=== PATIENT | female | born 1995 | race Caucasian/White ===

== ENCOUNTER 2024-06-21 01:36 | Inpatient (IN) ==
[2024-06-21] MEDS ORDERED: LIDOCAINE 1% LOCAL 20 ML VIAL INFIL PRN (04:02)
--- NOTE | 2024-06-21 04:06 | History & Physical Report ---
Date of Service June 21, 2024 Assessment & Plan (1) Encounter for supervision of normal in multigravida: Plan: Admit to L&D for labor. EFM/toco. labs. Would like epidural. History of Present Illness Chief Complaint: labor Primary Care Provider: Viri Hahn MD 28yo @ 40 0/7, came to L&D with contractions. No leaking, no bleeding. +FM Allergies Allergy/AdvReac Type Severity Reaction Status Date / Time neosporin Allergy Intermediate Rash Uncoded 06/14/24 11:49 Home Medications Medication Instructions Recorded Confirmed Type 21-iron fu-folic acid 1 tab PO DAILY 11/06/23 06/21/24 History [ Complete] sertraline 50 mg PO DAILY 11/06/23 06/21/24 History Patient History Medical History Depression History of chicken pox Hx of migraines Surgical History S/P ear surgery S/P wisdom tooth extraction Family History Sister Endometriosis Grandmother (Paternal) Endometriosis Denies family history of Ovarian cancer Breast cancer Colorectal cancer Social History Smoking Status: Never smoker Do You Dip or Chew Tobacco: No; Hx Alcohol Use: No Hx Substance Use: No Preferred Language: Tajik Communication Ability: Effective 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 Beliefs That Will Affect Care: None marital status: marital status details: Farhad Lozoya (31) [phone] Current Living Situation: Spouse and Family Current Living Situation Comment: lives with spouse, child, dog current occupational status: employed 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 No s/s chorio or abruption. Skin: no rashes, warm and dry Psychiatric: A+Ox3, euthymic affect Results & Data Vital Signs (Past 12 Hours) Vital Signs Temp Pulse Resp BP 06/21/24 01:58 36.9 C 18 06/21/24 01:53 107 H 110/71 Coding Level of Care Code None Diagnoses Encounter for supervision of normal in multigravida Z34.80
[2024-06-21] MEDS: LACTATED RINGER'S 1,000 ML IV PRN (04:15)
[2024-06-21 04:55] LABS: Hematocrit (blood only) 34.4 % (37.0-47.0); Hemoglobin 11.7 g/dl (12.0-16.0); Mean Corpuscular Volume 91.2 fL (80.0-100.0); Mean Platelet Volume 8.6 fL (9.4-12.4); Platelet Count 190 K/uL (130-400); RDW Coefficient of Variation 14.2 % (11.5-14.5); RDW Standard Deviation 47.4 fL (36.4-46.3); Red Blood Count 3.77 M/uL (4.20-5.40); White Blood Count 10.77 K/ul (4.8-10.8)
[2024-06-21] MEDS ORDERED: SODIUM CHLORIDE 0.9% PF INJ 10 ML VIAL EPI PRN (05:02)
[2024-06-21] MEDS ORDERED: ONDANSETRON INJ 2 MG/ML 2 ML VIAL IV PRN (05:02)
[2024-06-21] MEDS ORDERED: ROPIVACAINE 0.5% PF 5 MG/ML 20 ML VIAL EPI PRN (05:02)
[2024-06-21] MEDS ORDERED: fentaNYL citrate PF 100 MCG/2 ML VIAL EPI PRN (05:02)
[2024-06-21] MEDS ORDERED: LIDOCAINE 2% MPF LOCAL 5 ML VIAL EPI PRN (05:02)
[2024-06-21] MEDS ORDERED: BUPIVACAINE 0.25% PF 30 ML VIAL EPI PRN (05:02)
[2024-06-21] MEDS ORDERED: NALOXONE HCL 0.4 MG/1 ML VIAL/CARP IV PRN (05:02)
[2024-06-21] MEDS ORDERED: NALOXONE HCL 1 MG in SODIUM CHLORIDE 0.9% 1,000 ML IV PRN (05:02)
[2024-06-21] MEDS ORDERED: diphenhydrAMINE 50 MG/ML VIAL IV PRN (05:02)
[2024-06-21] MEDS ORDERED: NALBUPHINE HCL INJ 10 MG/ML AMP IV PRN (05:02)
--- NOTE | 2024-06-21 05:07 | Anesthesiology Consultation ---
Date of Service June 21, 2024 Assessment & Plan (1) Encounter for pre-operative examination: Chart Review Chart Review: Patient NOT seen in Pre Admission Testing and Acceptable Risk for Labor Epidural Consults Requested none History Height/Weight Height: 5 ft 8 in Weight: 100.607 kg Allergies Allergy/AdvReac Type Severity Reaction Status Date / Time bacitracin Allergy Intermediate Rash Verified 06/21/24 04:11 [From Neosporin ([id number])] neomycin Allergy Intermediate Rash Verified 06/21/24 04:11 [From Neosporin ([id number])] polymyxin B Allergy Intermediate Rash Verified 06/21/24 04:11 [From Neosporin ([id number])] Medications Home Medications Medication Instructions Recorded Confirmed Last Taken 21-iron fu-folic acid 1 tab PO DAILY 11/06/23 06/21/24 06/20/24 09:00 [ Complete] sertraline 50 mg PO DAILY 11/06/23 06/21/24 06/20/24 07:30 Active Medications Generic Name Dose Route Start Last Admin Trade Name Freq PRN Reason Stop Dose Admin Lactated Ringer's 1,000 mls @ 125 mls/hr 06/21/24 04:02 06/21/24 04:15 Lr IV 06/22/24 04:01 999 mls/hr .Q8H PRN Administration L&D Protocol Protocol Past Medical History Medical History (Updated 06/21/24 @ 05:06 by Chase Ralph MD) Encounter for pre-operative examination Depression History of chicken pox Hx of migraines Exercise / Class Metabolic Activity II 4-5 Yardwork/Stairs/Walk up hill Past Family History Family History Sister Endometriosis Grandmother (Paternal) Endometriosis Denies family history of Ovarian cancer Breast cancer Colorectal cancer Past Surgical History Surgical History S/P ear surgery ruptured ear drum S/P wisdom tooth extraction Social History Smoking Status: Never smoker Do You Dip or Chew Tobacco: No Hx Alcohol Use: No Alcohol Intake Frequency Comment: Not during . Hx Substance Use: No Physical Exam Vital Signs Last Vital Signs Temp 36.9 C 06/21/24 01:58 Pulse 92 H 06/21/24 05:26 Resp 18 06/21/24 01:58 BP 103/56 L 06/21/24 05:26 Pulse Ox 97 06/21/24 05:23 Testing Laboratory Results 06/21/24 04:16
[2024-06-21] MEDS: LIDOCAINE 2%/EPINEPHRINE 1:200,000 20 ML PF EPI STA (05:35)
[2024-06-21] MEDS: BUPIVACAINE 0.25% PF 30 ML VIAL EPI STA (05:36)
[2024-06-21] MEDS: fentANYL 2 MCG/ML BUPIVacaine 0.125%-NSS 100ML BAG EPI PRN (05:36)
[2024-06-21] MEDS: fentaNYL citrate PF 100 MCG/2 ML VIAL EPI STA (05:36)
[2024-06-21] MEDS: BUPIVACAINE 0.25% PF 30 ML VIAL ONE (05:39)
[2024-06-21] MEDS: SODIUM CHLORIDE 0.9% PF INJ 10 ML VIAL ONE (05:40)
[2024-06-21] MEDS: LIDOCAINE 2%/EPINEPHRINE 1:200,000 20 ML PF ONE (05:40)
[2024-06-21] MEDS: SODIUM CHLORIDE 0.9% PF INJ 10 ML VIAL EPI STA (05:40)
[2024-06-21] MEDS: ePHEDrine sulfate 50 MG/ML AMP ONE (05:40)
[2024-06-21] MEDS: fentANYL 2 MCG/ML BUPIVacaine 0.125%-NSS 100ML BAG ONE (05:40)
[2024-06-21] MEDS: fentaNYL citrate PF 100 MCG/2 ML VIAL ONE (05:40)
[2024-06-21] MEDS: ePHEDrine sulfate 50 MG/ML AMP IV PRN (08:00)
--- NOTE | 2024-06-21 09:26 | Labor Progress Brief Note ---
Date of Service June 21, 2024 Subjective Comfortable w/ epidural Assessment & Plan (1) Encounter for supervision of normal in multigravida: Plan: 28 yo at 40 wga presents in labor VSS Fetus cat 1 Labor - s/p arom for mec, cervix 9 after rom. GBS neg epidural in place Admission and Anticipated Discharge Date Admission Date: June 21, 2024 Physical Exam Genitourinary: Manual OB Exam: + cervical dilation 9 cm, + cervical effacement 90%, + station 0 and + amniotic fluid (arom mec) OB Exam Monitor Tracing: + external FHT monitor used, + external uterine monitor used (q5) and + category I (140/mod/-accel/-decel) Results & Data Vital Signs (Past 12 Hours) Vital Signs Temp Pulse Resp BP Pulse Ox Pulse Ox O2 Del Method 06/21/24 09:18 97 H 106/63 97 06/21/24 09:13 107 H 97 06/21/24 09:12 100 H 93 06/21/24 09:08 112 H 98 06/21/24 09:03 98 H 101/59 L 97 06/21/24 08:58 91 H 95 06/21/24 08:53 87 97 06/21/24 08:49 100 H 107/57 L 06/21/24 08:48 101 H 97 06/21/24 08:43 101 H 96 06/21/24 08:38 99 H 96 06/21/24 08:33 91 H 97 06/21/24 08:31 93 H 100/62 06/21/24 08:29 92 H 99/55 L 06/21/24 08:28 93 H 97 06/21/24 08:27 88 100/57 L 06/21/24 08:25 92 H 98/54 L 06/21/24 08:23 84 99/52 L 97 06/21/24 08:21 97 H 109/62 06/21/24 08:19 97 H 105/62 06/21/24 08:18 80 97 06/21/24 08:17 77 100/57 L 06/21/24 08:15 84 99/57 L 06/21/24 08:13 88 89/51 L 97 06/21/24 08:11 88 92/54 L 06/21/24 08:09 83 93/54 L 06/21/24 08:08 94 H 98 06/21/24 08:07 86 85/51 L 06/21/24 08:05 86 90/51 L 06/21/24 08:03 82 91/51 L 97 06/21/24 08:01 88 87/52 L 06/21/24 07:59 79 83/49 L 06/21/24 07:58 85 83/46 L 96 06/21/24 07:56 76 93 06/21/24 07:53 86 97 06/21/24 07:48 121 H 98 06/21/24 07:43 98 06/21/24 07:43 94 H 06/21/24 07:43 95 H 103/69 06/21/24 07:38 105 H 97 06/21/24 07:33 106 H 96 06/21/24 07:28 97 06/21/24 07:28 99 H 06/21/24 07:28 110 H 103/62 06/21/24 07:23 98 H 97 06/21/24 07:18 103 H 97 06/21/24 07:13 98 06/21/24 07:13 109 H 06/21/24 07:13 97.9 F 108 H 16 111/63 06/21/24 07:08 106 H 98 06/21/24 07:03 105 H 99 06/21/24 06:58 90 103/58 L 97 06/21/24 06:53 85 96 06/21/24 06:48 91 H 97 06/21/24 06:43 104 H 96/57 L 97 06/21/24 06:38 95 H 96 06/21/24 06:33 92 H 96 06/21/24 06:28 98 06/21/24 06:28 99 H 06/21/24 06:28 97 H 106/63 06/21/24 06:23 101 H 97 06/21/24 06:18 96 H 98 06/21/24 06:13 97 H 97 06/21/24 06:12 111 H 104/60 06/21/24 06:10 90 101/59 L 06/21/24 06:08 89 103/62 96 06/21/24 06:06 93 H 108/65 06/21/24 06:04 92 H 109/63 06/21/24 06:03 94 H 96 06/21/24 06:02 93 H 104/63 06/21/24 06:00 96 H 103/63 06/21/24 05:58 96 06/21/24 05:58 93 H 06/21/24 05:58 90 104/64 06/21/24 05:56 86 109/67 06/21/24 05:54 97 H 113/68 06/21/24 05:53 96 H 96 06/21/24 05:52 89 125/76 06/21/24 05:50 96 H 117/68 06/21/24 05:48 96 06/21/24 05:48 94 H 06/21/24 05:48 102 H 134/86 06/21/24 05:47 93 H 94 06/21/24 05:46 112 H 126/92 06/21/24 05:44 107 H 114/65 06/21/24 05:43 106 H 97 06/21/24 05:42 92 H 101/54 L 06/21/24 05:40 91 H 97/54 L 06/21/24 05:38 105 H 94/55 L 96 06/21/24 05:36 96 H 99/57 L 06/21/24 05:34 93 H 95/56 L 06/21/24 05:33 97 H 96 06/21/24 05:32 95 H 97/57 L 06/21/24 05:30 99 H 101/57 L 06/21/24 05:28 97 06/21/24 05:28 101 H 06/21/24 05:28 93 H 106/61 06/21/24 05:26 92 H 103/56 L 06/21/24 05:24 99 H 113/77 06/21/24 05:23 94 H 97 06/21/24 05:18 100 H 98 06/21/24 05:13 99 H 99 06/21/24 05:08 102 H 97 06/21/24 05:03 98 H 99 06/21/24 05:02 97 Room Air 06/21/24 04:54 92 H 99 06/21/24 04:49 108 H 100 06/21/24 04:44 95 H 99 06/21/24 04:39 97 H 96 06/21/24 04:34 110 H 99 06/21/24 04:29 106 H 99 06/21/24 04:24 96 H 97 06/21/24 01:58 98.4 F 18 06/21/24 01:53 107 H 110/71 Coding Level of Care Code None Diagnoses Encounter for supervision of normal in multigravida Z34.80
[2024-06-21] MEDS: OXYTOCIN 30 UNITS/NSS 30 UNITS/500 ML BAG IV PRN (10:28)
--- NOTE | 2024-06-21 10:44 | Delivery Summary ---
Vaginal Delivery Summary Date of Service June 21, 2024 Vaginal Delivery Summary [facility] PREOPERATIVE DIAGNOSIS: 1. Single intrauterine at 40 wga 2. Labor POSTOPERATIVE DIAGNOSIS: 1. Single intrauterine at 40 wga 2. Labor 3. Delivered PROCEDURE: 1. Normal spontaneous vaginal delivery. SURGEON: Jordyn Julien MD ANESTHESIA: Epidural. QUANTITATIVE BLOOD LOSS: 52 mL FLUIDS: Continuous LR. URINE OUTPUT: 450 ml by straight cath after delivery COMPLICATIONS: None. CONDITION: Stable. INDICATIONS: 28 yo at 40 wga presented in labor. She received an epidural for pain control. She underwent arom for meconium stained fluid and progressed to complete and desired to push. FINDINGS: A viable male infant, weight pending with Apgars of 8 and 9 at 1 and 5 minutes respectively. SPECIMEN: Cord blood OPERATIVE REPORT: The patient progressed to 10 cm, 100% effaced and +2 station, pushed over intact perineum with anesthesia to deliver a viable male , weight and Apgars as above. Head of delivered in [place] position. Loose nuchal cord was reduced. Body and shoulders were delivered without difficulty. was delivered to maternal abdomen and nursing staff. Delayed cord clamping was performed for 60 seconds. Cord was clamped and cut. Cord blood was obtained. Placenta delivered spontaneously intact with 3-vessel cord, true knot noted. IV oxytocin and fundal massage were given for excellent hemostasis. Vagina, cervix, perineum, and placenta were inspected. A periclitoral laceration was repaired with 4-0 vicryl in interrupted stitches. There was excellent hemostasis. Sponge and needle counts correct x2. No sponges were left behind. Mother and stable in immediate period. [facility] Vaginal Delivery Charge Vaginal Delivery Codes: 23409 global code for the antepartum, delivery, and post- Delivery Type Details: [facility]
[2024-06-21] MEDS ORDERED: OXYTOCIN 30 UNITS/NSS 30 UNITS/500 ML BAG IV PRN (11:05)
[2024-06-21] MEDS ORDERED: HYDROCORTISONE ACETATE 25 MG SUPP PR PRN (11:05)
[2024-06-21] MEDS ORDERED: bisacodyL 10 MG SUPP PR PRN (11:05)
[2024-06-21] MEDS ORDERED: ACETAMINOPHEN 325 MG TAB PO PRN (11:05)
--- NOTE | 2024-06-21 11:26 | Anesthesia Procedure Note ---
Date of Service June 21, 2024 Anesthesia Post Epidural Note Vital Signs Vital Signs: Temp Pulse Resp BP Pulse Ox O2 Del Method 97.9 F 89 16 102/58 L 98 Room Air 06/21/24 07:13 06/21/24 11:23 06/21/24 07:13 06/21/24 11:15 06/21/24 11:23 06/21/24 05:02 Notes Mental Status: alert / awake / arousable and participated in evaluation Nausea / Vomiting: adequately controlled Pain: adequately controlled Airway Patency, RR, SpO2: stable & adequate BP & HR: stable & adequate Hydration State: stable & adequate Neuraxial Anesthesia: was administered and sensory block is resolving Anesthetic Complications: no major complications apparent and Pt Satisfied with anesthetic care Epidural: Removed without complications and With tip intact
[2024-06-21] MEDS: BENZOCAINE 20% SPRY 85 APPLN/85 GM CAN EXT PRN (13:36)
[2024-06-21] MEDS: SERTRALINE HCL 50 MG TABLET PO SCH (13:52)
[2024-06-21] MEDS: IBUPROFEN 600 MG TAB PO PRN (20:38)
[2024-06-21] MEDS: DOCUSATE SODIUM 100 MG CAP PO SCH (20:38)
[2024-06-22] MEDS: DIPHTHER/TETAN/PERTUS Vaccine (Tdap, Adol/Adult) 0.5mL IM ONE (07:10)
--- NOTE | 2024-06-22 07:41 | Obstetrical Progress Note ---
Date of Service June 22, 2024 Assessment & Plan (1) Encounter for care and examination after delivery: Day 1 status post vaginal delivery. Patient doing well. Stable for discharge if preferred Subjective Ambulation: ambulating normally Voiding: no voiding problems Passing Gas:: Yes Diet Tolerance:: regular diet Lochia:: Moderate Feeding Type:: breast feeding Physical Exam Constitutional WD/WN, vitals as above Respiratory normal respiratory effort; no respiratory distress and no labored breathing Cardiovascular Extremities: no calf tenderness Gastrointestinal (Abdomen) Inspection/Auscultation: abdomen normal to inspection; abdomen not distended Percussion/Palpation: abdomen soft; abdomen nontender, no guarding and abdomen not rigid Genitourinary OB Exam Abdomen: + fundal height Fundus: + firm and + relation to umbilicus (Below); not tender or not boggy Results & Data Vital Signs (Past 12 Hours) Vital Signs Temp Pulse Resp BP Pulse Ox O2 Del Method 06/22/24 03:10 36.5 C 70 18 113/66 96 Room Air 06/21/24 23:05 36.7 C 80 18 112/77 96 Room Air 06/21/24 19:45 36.4 C L 96 H 18 108/74 98 Room Air
[2024-06-22] MEDS: PRENATAL VITAMIN 1 TAB PO SCH (08:03)
[2024-06-22] MEDS: bisacodyL 5 MG TABEC PO SCH (21:15)
--- NOTE | 2024-06-23 07:59 | Obstetrical Progress Note ---
Date of Service June 23, 2024 Assessment & Plan (1) Encounter for care and examination after delivery: 29 yo PP2 from , doing well -Meeting all pp milestones -O+/rubella immune/ -f/u 6 weeks for appt, dc home Subjective Ambulation: ambulating normally Voiding: no voiding problems Passing Gas:: Yes Diet Tolerance:: regular diet Lochia:: Small Feeding Type:: breast feeding Pain well managed with medication Review of Systems Denies fevers, chills, n/v, SAMUEL, CP, SOB Physical Exam Constitutional WD/WN, vitals as above no acute distress Respiratory normal respiratory effort, lungs clear to auscultation Cardiovascular RRR, no murmur, no edema Gastrointestinal (Abdomen) Percussion/Palpation: abdomen soft; abdomen nontender fundus firm at umbilicus and NT Musculoskeletal BLE symmetric, nonerythematous, nontender Results & Data Vital Signs (Past 12 Hours) Vital Signs Temp Pulse Resp BP Pulse Ox O2 Del Method 06/22/24 23:45 97.7 F 72 16 110/60 96 Room Air 06/22/24 21:10 97.7 F 87 16 97/67 L 97 Room Air
[2024-06-23 08:26] VITALS: BP 110/80; PULSE 92; RESP 20; TEMP 97.9; O2SAT 97
== END 2024-06-23 10:40 | disposition home or self-care (01) | DRG 768 ==
LOC: OPB 01:36 → 4S1 01:37 → 4E1 12:50